=== PATIENT | male | born 1980 | race Caucasian/White ===

== ENCOUNTER 2021-02-09 01:37 | Emergency (ER) | payer OTHER ==
[~2021-02-09] VITALS: Ht 167.6 cm; Wt 95.3 kg
[2021-02-09 01:41] VITALS: BP 186/107
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
[2021-02-09] MEDS ORDERED: ONDANSETRON 4 MG/2 ML VIAL IVP ONE (02:30)
[2021-02-09] MEDS ORDERED: MORPHINE SULFATE 4 MG/ML SYR IVP ONE (02:30)
--- NOTE | 2021-02-09 03:15 | NUR ---
ROUNDED ON PT. PT DENIES PAIN AT THIS TIME. LAYING IN SEMI FOWLERS POSITION. NO RESPIRATORY DISTRESS NOTED. ALERT AND AWAKE. PT IS STABLE.
[2021-02-09 03:18] LABS: BASOPHILS # (AUTO) 0.1 K/uL (0.00-0.22); BASOPHILS % (AUTO) 0.8 % (0.0-2.0); EOSINOPHILS # (AUTO) 0.2 K/uL (0-0.4); EOSINOPHILS % (AUTO) 1.9 % (0.0-4.0); HEMATOCRIT 41.7 % (36-52); HEMOGLOBIN 14.2 g/dL (12.0-18.0); LYMPHOCYTES # (AUTO) 2.1 K/uL (2.0-11.5); LYMPHOCYTES % (AUTO) 22.3 % (20.5-51.1); MEAN CORPUSCULAR HEMOGLOBIN 30 pg (27-31); MEAN CORPUSCULAR HGB CONC 34 g/dL (33-37); MEAN CORPUSCULAR VOLUME 87.4 fL (80-94); MONOCYTES # (AUTO) 0.9 K/uL (0.8-1.0); MONOCYTES % (AUTO) 9.1 % (1.7-9.3); NEUTROPHILS # (AUTO) 6.3 K/uL (1.8-7.7); NEUTROPHILS % (AUTO) 65.9 % (42.2-75.2); PLATELET COUNT (AUTO) 291 K/uL (140-450); RED BLOOD CELL COUNT(AUTO) 4.77 MIL/uL (4.20-6.10); RED CELL DISTRIBUTION WIDTH 13.4 % (11.6-13.7); WHITE BLOOD COUNT (AUTO) 9.5 K/uL (4.8-10.8)
[2021-02-09 03:38] LABS: ALBUMIN 3.6 g/dL (3.4-5.0); ANION GAP 11.4 (8-16); CARBON DIOXIDE 26.7 mmol/L (21-32); CREATININE 0.9 mg/dL (0.6-1.3); POTASSIUM 4.1 mmol/L (3.5-5.1); TOTAL BILIRUBIN 0.3 mg/dL (0.0-1.0)
--- NOTE | 2021-02-09 04:10 | NUR ---
[facility] ED[facility] PICKED UP PT VIA [facility] FOR CT SCAN.
--- NOTE | 2021-02-09 04:47 | NUR ---
PT IS BACK FROM CT SCAN. NO COMPLAINTS AT THIS TIME. DENIES PAIN. BREATHING IS UNLABORED. PT IS STABLE.
[2021-02-09] MEDS ORDERED: KETO10TA2 PO (06:20)
[2021-02-09] MEDS ORDERED: CYCL10TA33 PO (06:20)
[2021-02-09] MEDS ORDERED: MORPHINE SULFATE 2 MG/ML SYR IVP ONE (06:30)
--- NOTE | 2021-02-09 06:32 | NUR ---
PT STATED HE HAD PAIN IN HIS BACK AND NECK AT A SCALE OF 8/10. PT STATES THE PAIN ACHING. PT WAS GIVEN MORPHINE FOR PAIN. BP WAS 136/69 PRIOR TO ADMINISTRATION.
--- NOTE | 2021-02-09 06:43 | NUR ---
Patient discharged with v/s stable. Written and verbal after care instructions given and explained. Patient alert, oriented and verbalized understanding of instructions. Ambulatory with steady gait. All questions addressed prior to discharge. ID band removed. Patient advised to follow up with PMD. Rx of KETOROLAC AND CYCLOBENZAPRINE given. Patient educated on indication of medication including possible reaction and side effects. Opportunity to ask questions provided and answered.
[2021-02-09 06:44] VITALS: BP 136/69
== END 2021-02-09 06:30 | disposition home or self-care (01) ==
LOC: MED 01:37
DX: M54.2 Cervicalgia (principal); M54.5 Low back pain; R07.9 Chest pain, unspecified; V98.8XXA Other specified transport accidents, initial encounter; Y93.89 Activity, other specified; Y92.89 Other specified places as the place of occurrence of the external cause; Y99.8 Other external cause status
CPT/HCPCS: 36415; 70450; 71260; 72125; 72128; 72131; 80053; 85025; 96374; 96375; 96376; 99285; J2270; J2405; Q9967